=== PATIENT | female | born 1985 | race Caucasian/White ===

== ENCOUNTER 2020-10-03 05:35 | Emergency (ER) | payer BC ==
--- OUTSIDE RECORDS SUMMARY | 2020-10-03 05:38 | XMS REPORT | Continuity of Care Document ---
:1985 Author Organization [facility] t Address [address] [place] [address] [address]. Tom[address] [place] [address] Care Team Providers Name Role Phone Doctor Unassigned, Name Attending Clinician Unavailable Margaret JEAN, Ramon Attending Clinician Topher Gutierres MD Attending Clinician David Jade MD Attending Clinician Jackie SWIFT Attending Clinician Problems This patient has no known problems. Allergies, Adverse Reactions, Alerts This patient has no known allergies or adverse reactions. Medications This patient has no known medications. Procedures This patient has no known procedures. Encounters Start End Encounter Admission Attending Care Care Encounter Source Date/Time Date/Time Type Type Clinicians Facility Department ID 2020-03-31 2020-03-31 Orders Doctor FLORES [id number] 00:00:00 00:00:00 Only UnassignedGERRY [id number] [place] [facility] [id number] 2020-03-18 2020-03-18 Office ZHAO Robles [id number] 09:47:58 15:00:47 Visit Mihail AMBULATOR [id number] Ramon Christian [id number] 2020-03-17 2020-03-17 Orders Doctor FLORES [id number] 00:00:00 00:00:00 Only UnassignedGERRY [id number] [place] [facility] [id number] 2020-03-13 2020-03-13 Office ZHAO Gutierres [id number] 14:55:57 16:09:36 Visit Ford Obando AMBULATOR [id number] Y [id number] 2020-03-13 2020-03-13 Telephone Yasmany [facility] [id number] 00:00:00 00:00:00 [facility] [id number] [place] [id number] [facility] [phone] [place] [address] [address] 2019-10-07 2019-10-07 Telephone Yasmany [facility] [id number] 00:00:00 00:00:00 [facility] [id number] [place] [id number] [facility] [phone] [place] [address] [address] 2019-07-08 2019-07-08 Office Jackie [facility] [id number] 08:53:39 09:31:38 Visit [facility] [id number] [place] [id number] Profess[facility] [phone] [place] [address] [address] 2019-03-07 2019-03-07 Office CATHY Gutierres [id number] 09:40:05 10:05:29 Visit Ford Obando AMBULATOR [id number] Y [id number] Results This patient has no known results.
[2020-10-03] MEDS ORDERED: MORPHINE 4 MG/ML SYR ONE (06:12)
[2020-10-03 06:13] LABS: Absolute Lymphocytes (CBC) 1.7 K/uL (0.7-4.9); Basophils % 0.9 % (0-1.3); Hematocrit 40.4 % (36.0-45.0); Lymphocytes % 25.3 % (15.3-44.8); MPV 7.1 fL (7.6-11.3)
[2020-10-03] MEDS ORDERED: NA CHLORIDE 0.9% 1,000 ML ONE (06:13)
[2020-10-03] MEDS ORDERED: ONDANSETRON 4 MG/2 ML VIAL ONE (06:13)
[2020-10-03 06:34] LABS: ALT/SGPT 20 U/L (12-78); AST/SGOT 13 U/L (15-37); Alkaline Phosphatase 40 U/L (45-117); BUN Blood Urea Nitrogen 8 mg/dL (7-18); Bicarbonate 25 mmol/L (21-32); Bilirubin Direct < 0.1 mg/dL (0-0.2); Bilirubin Total 0.3 mg/dL (0.2-1.0); Glucose Level 100 mg/dL (74-106); Lipase 218 U/L (73-393); Potassium 3.5 mmol/L (3.5-5.1); Protein, Total 7.1 g/dL (6.4-8.2); Sodium Level 146 mmol/L (136-145)
[2020-10-03 06:55] LABS: Urine Blood 3+ (Negative); Urine Glucose Negative (Negative); Urine Protein Negative (Negative); Urine Specific Gravity 1.025 (1.005-1.030); Urine pH 6.5 (5.0-7.0)
[2020-10-03] MEDS ORDERED: KETOROLAC 30 MG/ML INJ ONE (07:25)
--- NOTE | 2020-10-03 07:42 | EDPHYS ---
Physician Documentation [facility] Name: Lindy Hernandez Age: 35 yrs Sex: Female : 1985 Arrival Date: 10/03/2020 Time: 05:39 Bed 14 Private MD: MIKE Physician James Martini HPI: 10/03 05:47 This 35 yrs old Female presents to ER via EMS with complaints of Abdominal mh7 Pain. 05:47 The patient presents with abdominal pain in the lower abdomen. Onset: The mh7 symptoms/episode began/occurred this morning, today. The symptoms do not radiate. Associated signs and symptoms: Pertinent positives: nausea, Pertinent negatives: anorexia, blood in stools, chest pain, constipation, diarrhea, dysuria, fever, headache, hematuria, palpitations, shortness of breath, vaginal discharge, vomiting, vomiting blood. The symptoms are described as intermittent, vague, waxing/waning. Modifying factors: The symptoms are alleviated by nothing, the symptoms are aggravated by nothing. Severity of pain: At its worst the pain was moderate this morning, in the emergency department the pain has improved moderately. [employer]: 05:46 LMP 10/03/2020 sf Historical: - Allergies: 05:46 No Known Allergies; sf - Home Meds: 05:46 Xanax 0.25 mg oral tab daily [Active]; Cymbalta 20 mg oral cpDR 1 cap daily [Active]; sf - PMHx: 05:46 Anxiety; PAC; Ovarian cyst; sf - Immunization history:: Adult Immunizations up to date. - Social history:: Smoking status: Patient denies any tobacco usage or history of. Patient uses alcohol, only on a social basis. Patient/guardian denies using street drugs, IV drugs. ROS: 05:47 Constitutional: Negative for fever, chills, and weight loss, Eyes: Negative for injury, mh7 pain, redness, and discharge, ENT: Negative for injury, pain, and discharge, Neck: Negative for injury, pain, and swelling, Cardiovascular: Negative for chest pain, palpitations, and edema, Respiratory: Negative for shortness of breath, cough, wheezing, and pleuritic chest pain, Back: Negative for injury and pain, : Negative for injury, bleeding, discharge, and swelling, MS/Extremity: Negative for injury and deformity, Skin: Negative for injury, rash, and discoloration, Neuro: Negative for headache, weakness, numbness, tingling, and seizure, Psych: Negative for depression, anxiety, suicide ideation, homicidal ideation, and hallucinations, Allergy/Immunology: Negative for hives, rash, and allergies, Endocrine: Negative for neck swelling, polydipsia, polyuria, polyphagia, and marked weight changes, Hematologic/Lymphatic: Negative for swollen nodes, abnormal bleeding, and unusual bruising. Exam: 05:47 Constitutional: This is a well developed, well nourished patient who is awake, alert, mh7 and in no acute distress. Head/Face: Normocephalic, atraumatic. Eyes: Pupils equal round and reactive to light, extra-ocular motions intact. Lids and lashes normal. Conjunctiva and sclera are non-icteric and not injected. Cornea within normal limits. Periorbital areas with no swelling, redness, or edema. Neck: Trachea midline, no thyromegaly or masses palpated, and no cervical lymphadenopathy. Supple, full range of motion without nuchal rigidity, or vertebral point tenderness. No Meningismus. Chest/axilla: Normal chest wall appearance and motion. Nontender with no deformity. No lesions are appreciated. Cardiovascular: Regular rate and rhythm with a normal S1 and S2. No gallops, murmurs, or rubs. Normal PMI, no JVD. No pulse deficits. Respiratory: Lungs have equal breath sounds bilaterally, clear to auscultation and percussion. No rales, rhonchi or wheezes noted. No increased work of breathing, no retractions or nasal flaring. 05:47 Back: No spinal tenderness. No costovertebral tenderness. Full range of motion. Skin: Warm, dry with normal turgor. Normal color with no rashes, no lesions, and no evidence of cellulitis. MS/ Extremity: Pulses equal, no cyanosis. Neurovascular intact. Full, normal range of motion. Neuro: Awake and alert, GCS 15, oriented to person, place, time, and situation. Cranial nerves II-XII grossly intact. Motor strength 5/5 in all extremities. Sensory grossly intact. Cerebellar exam normal. Normal gait. Psych: Awake, alert, with orientation to person, place and time. Behavior, mood, and affect are within normal limits. 06:41 Abdomen/GI: Inspection: abdomen appears normal, Bowel sounds: normal, in all quadrants, [facility] Palpation: moderate abdominal tenderness, in the suprapubic area, mass, is not appreciated, rebound tenderness, is not appreciated, voluntary guarding, is not appreciated, involuntary guarding, is not appreciated, no appreciated organomegaly, Rectal exam: the exam is deferred, because of patient request, Indicators: McBurney's point is not tender, Antoine's sign is negative, Rovsing's sign is negative, Obturator sign is negative, Psoas sign is negative, Liver: no appreciated palpable abnormalities, Hernia: not appreciated. Vital Signs: 05:40 BP 104 / 74; Pulse 62; Resp 16; Temp 98.1; Pulse Ox 100% ; Weight 65.77 kg; Height 5 sf ft. 8 in. (172.72 cm); Pain 6/10; 07:35 BP 108 / 73; Pulse 90; Resp 16; Pulse Ox 100% on R/A; Pain 1/10; ll1 08:06 BP 108 / 70; Pulse 88; Resp 17; ll1 05:40 Body Mass Index 22.05 (65.77 kg, 172.72 cm) MDM: 07:09 Transition of care: After a detail discussion of the patient's case, care is [facility] transferred to James Martini MD. 07:16 Patient medically screened. [facility] 10/03 05:42 Order name: Basic Metabolic Panel; Complete Time: 06:41 [facility] 10/03 05:42 Order name: CBC with Diff; Complete Time: 06:30 [facility] 10/03 05:42 Order name: Hepatic Function; Complete Time: 06:41 [facility] 10/03 05:42 Order name: Lipase; Complete Time: 06:41 [facility] 10/03 06:54 Order name: Urine Dipstick-Ancillary; Complete Time: 06:55 EDMS 10/03 06:57 Order name: Urine --Ancillary (enter results) 10/03 05:42 Order name: IV Saline Lock; Complete Time: 06:00 [facility] 10/03 05:42 Order name: Labs collected and sent; Complete Time: 06:00 [facility] 10/03 06:58 Order name: Urine --Ancillary; Complete Time: 19:29 EDAL 10/03 05:42 Order name: Urine Dipstick-Ancillary (obtain specimen); Complete Time: 06:54 mh7 10/03 05:42 Order name: Urine Test (obtain specimen); Complete Time: 06:54 mh7 Administered Medications: 06:00 Drug: Zofran (Ondansetron) 4 mg Route: IVP; Site: right antecubital; sf 06:54 Follow up: Response: No adverse reaction sf 06:00 Drug: NS 0.9% 1000 ml Route: IV; Rate: 1000 ml; Site: right antecubital; sf 07:35 Follow up: Response: No adverse reaction; RASS: Alert and Calm (0); IV Status: ll1 Completed infusion; IV Intake: 1000ml 06:01 Drug: morphine 4 mg Route: IVP; Site: right antecubital; sf 06:54 Follow up: Response: No adverse reaction; Pain is decreased sf 07:36 Not Given (Patient Refused): TORadol (ketorolac) 30 mg IVP once ll1 Disposition: 10/03/20 07:42 Discharged to Home. Impression: Abdominal tenderness, Abdominal and pelvic pain. - Condition is Stable. - Discharge Instructions: Abdominal Pain, Adult, Pelvic Pain, Female. - Prescriptions for Bentyl 20 mg Oral Tablet - take 1 tablet by ORAL route every 6 hours As needed; 20 tablet. Ibuprofen 600 mg Oral Tablet - take 1 tablet by ORAL route every 6 hours As needed take with food; 20 tablet. - Medication Reconciliation Form, Thank You Letter, Antibiotic Education, Prescription Opioid Use, School release form form. - Follow up: Private Physician; When: 2 - 3 days; Reason: Recheck today's complaints, Continuance of care, Re-evaluation by your physician. Follow up: Avis Villar MD; When: 2 - 3 days; Reason: Recheck today's complaints, Continuance of care, Re-evaluation by your physician. - Problem is new. - Symptoms have improved. Signatures: Dispatcher [employer] EDJames Mckeon MD MD cha Lewis, Lynsay, RN RN 1 Colby Ritchie MD MD 7 Jarrett Reyna RN RN sf Corrections: (The following items were deleted from the chart) 06:42 05:47 Abdomen/GI: [place] [id number] 07:45 06:56 Abdomen Pelvis W Con+CT.RAD.BRZ ordered. [facility] EDMS 08:06 07:42 10/03/2020 07:42 Discharged to Home. Impression: Abdominal tenderness; Abdominal ll1 and pelvic pain. Condition is Stable. Forms are Medication Reconciliation Form, Thank You Letter, Antibiotic Education, Prescription Opioid Use. Follow up: Private Physician; When: 2 - 3 days; Reason: Recheck today's complaints, Continuance of care, Re-evaluation by your physician. Follow up: Avis Villar; When: 2 - 3 days; Reason: Recheck today's complaints, Continuance of care, Re-evaluation by your physician. Problem is new. Symptoms have improved. [place]
--- NOTE | 2020-10-03 07:42 | ER ---
Nurse's Notes [facility] Name: Lindy Hernandez Age: 35 yrs Sex: Female : 1985 Arrival Date: 10/03/2020 Time: 05:39 Bed 14 Private MD: Diagnosis: Abdominal tenderness;Abdominal and pelvic pain Presentation: 10/03 05:40 Chief complaint: Patient states: Lower abdominal pain/pelvic pain for an hour and half, sf woke her up out of sleep. Hx ovarian cysts, feels like an ovarian cyst. Coronavirus screen: Client denies travel out of the [place] in the last 14 days. At this time, the client does not indicate any symptoms associated with coronavirus-19. Ebola Screen: Patient negative for fever greater than or equal to 101.5 degrees Fahrenheit, and additional compatible Ebola Virus Disease symptoms Patient denies exposure to infectious person. Patient denies travel to an Ebola-affected area in the 21 days before illness onset. No symptoms or risks identified at this time. Initial Sepsis Screen: Does the patient meet any 2 criteria? No. Patient's initial sepsis screen is negative. Does the patient have a suspected source of infection? Yes: Acute abdominal pain. Risk Assessment: Do you want to hurt yourself or someone else? Patient reports no desire to harm self or others. Onset of symptoms was October 03, 2020 at 04:00. 05:40 Method Of Arrival: EMS: [facility] 05:40 Acuity: VERITO 3 sf Triage Assessment: 05:46 General: Appears in no apparent distress. comfortable, Behavior is calm, cooperative. sf Pain: Complains of pain in suprapubic area Pain currently is 6 out of 10 on a pain scale. at worst was 10 out of 10 on a pain scale. Neuro: No deficits noted. Level of Consciousness is awake, alert, Oriented to person, place, time, situation. Cardiovascular: No deficits noted. Respiratory: No deficits noted. GI: Abdomen is non-distended, Reports nausea, Patient currently denies diarrhea, vomiting. : No deficits noted. No signs and/or symptoms were reported regarding the genitourinary system. Derm: No deficits noted. No signs and/or symptoms reported regarding the dermatologic system. Musculoskeletal: No deficits noted. No signs and/or symptoms reported regarding the musculoskeletal system. 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 - Social history:: Smoking status: Patient denies any tobacco usage or history of. Patient uses alcohol, only on a social basis. Patient/guardian denies using street drugs, IV drugs. Screenin:48 Abuse screen: Denies threats or abuse. Denies injuries from another. Nutritional sf screening: No deficits noted. Tuberculosis screening: No symptoms or risk factors identified. Fall Risk None identified. Total [place] Fall Scale indicates No Risk (0-24 pts). Assessment: 05:48 Reassessment: SEE TRIAGE ASSESSMENT. sf 07:10 Reassessment: No changes from previously documented assessment. Patient and/or family ll1 updated on plan of care and expected duration. Pain level reassessed. Patient states feeling better. Patient states symptoms have improved. 07:36 GI: Bowel sounds present X 4 quads. Abd is soft and non tender X 4 quads. ll1 Vital Signs: 05:40 BP 104 / 74; Pulse 62; Resp 16; Temp 98.1; Pulse Ox 100% ; Weight 65.77 kg; Height 5 sf ft. 8 in. (172.72 cm); Pain 6/10; 07:35 BP 108 / 73; Pulse 90; Resp 16; Pulse Ox 100% on R/A; Pain 1/10; ll1 08:06 BP 108 / 70; Pulse 88; Resp 17; ll1 05:40 Body Mass Index 22.05 (65.77 kg, 172.72 cm) ED Course: 05:39 Patient arrived in ED. iw 05:40 Colby Ritchie MD is Attending Physician. 7 05:42 Triage completed. sf 05:46 Arm band placed on. sf 05:48 Patient has correct armband on for positive identification. Bed in low position. Call sf light in reach. Side rails up X 1. Pulse ox on. NIBP on. Door closed. Noise minimized. Visitors limited. Lights dimmed. Warm blanket given. Verbal reassurance given. 05:55 Initial lab(s) drawn, by me, sent to lab. Inserted saline lock: 20 gauge in right sf antecubital area, using aseptic technique. Blood collected. 06:55 Urine collected: clean catch specimen, clear. sf 07:04 Report given to DORY Buckley. sf 07:16 Attending Physician role handed off by Colby Ritchie MD [facility] 07:16 James Martini MD is Attending Physician. [facility] 07:23 Marcio Garcia RN is Primary Nurse. ll1 07:35 No provider procedures requiring assistance completed. ll1 07:36 IV discontinued, intact, bleeding controlled, No redness/swelling at site. Pressure ll1 dressing applied. 07:41 Avis Villar MD is Referral Physician. [facility] Administered Medications: 06:00 Drug: Zofran (Ondansetron) 4 mg Route: IVP; Site: right antecubital; sf 06:54 Follow up: Response: No adverse reaction 06:00 Drug: NS 0.9% 1000 ml Route: IV; Rate: 1000 ml; Site: right antecubital; sf 07:35 Follow up: Response: No adverse reaction; RASS: Alert and Calm (0); IV Status: ll1 Completed infusion; IV Intake: 1000ml 06:01 Drug: morphine 4 mg Route: IVP; Site: right antecubital; sf 06:54 Follow up: Response: No adverse reaction; Pain is decreased sf 07:36 Not Given (Patient Refused): TORadol (ketorolac) 30 mg IVP once ll1 Intake: 07:35 IV: 1000ml; Total: 1000ml. ll1 Outcome: 07:42 Discharge ordered by . [facility] 08:06 Discharged to home ambulatory. 1 08:06 Condition: stable 08:06 Discharge instructions given to patient, Instructed on discharge instructions, follow up and referral plans. medication usage, Demonstrated understanding of instructions, follow-up care, medications, Prescriptions given X 2. 08:06 Patient left the ED. 1 Signatures: James Martini MD MD cha Williams, Irene, RN RN Marcio Garcia RN RN 1 Colby Ritchie MD MD [facility] Jarrett Reyna RN RN
[2020-10-03 07:50] LABS: Urine Specific Gravity/Preg 1.025 (1.005-1.030)
[2020-10-03 08:11] VITALS: TEMP 98.1; O2SAT 100
[2020-10-03 08:14] VITALS: BP 108/70
== END 2020-10-03 08:06 | disposition home or self-care (01) ==
LOC: ER 05:35
DX: R10.2 Pelvic and perineal pain (principal); F41.9 Anxiety disorder, unspecified
CPT/HCPCS: 85025; 80048; 36415; 81025; 80076; 81003; 83690; J7030; J2405; 96361; 96374; 96375; 99284